=== PATIENT | female | born 1960 | race Caucasian/White ===

== ENCOUNTER 2016-11-25 12:46 | Emergency (ER) | payer OTHER ==
[2016-11-25 12:58] VITALS: TEMP 98.8
[2016-11-25] MEDS ORDERED: NS 1,000 ML IV ONE (13:04)
[2016-11-25] MEDS ORDERED: methylPREDNISolone SOD SUCC 125 MG/2 ML VIAL IVP ONE (13:05)
[2016-11-25] MEDS ORDERED: ONDANSETRON 4 MG/2 ML VIAL IVP ONE (13:05)
--- NOTE | 2016-11-25 13:10 | EDPHY ---
H & P Time Seen by Provider: 11/25/16 12:57 HPI/ROS: CHIEF COMPLAINT: Headache HISTORY OF PRESENT ILLNESS: Patient is a 56-year-old female who presents to the emergency department with headache starting on Thursday. The patient states she has a history of migraines. She typically eats wanted to migraines a year. She states she was previously diagnosed with migraines and took migraine medicine. She does not recall having imaging. This headache started on Thursday. It has been fairly persistent. Initially started with nausea and mild dizziness. And now progressed to right-sided headache. Her headache occasionally radiates to the left side of the head and down the right side of her neck. It is not worse with movement. It is not positional. She has had no ataxia. She denies blurred or double vision. No recent trauma. REVIEW OF SYSTEMS: My complete review of systems is negative except as mentioned in the HPI. Past medical history: Includes migraines Past surgical history: Uterine ablation Social history: The patient is . She occasionally drinks alcohol Family history. The patient's father had a stroke in his 80s. GENERAL: No acute distress, alert. HEENT: Eyes normal to inspection, normal pharynx, no signs of dehydration. NECK: No thyromegaly, no lymphadenopathy, supple. No bruit RESPIRATORY: Clear to auscultation bilaterally, no rales, rhonchi or wheezing. CVS: Regular rate and rhythm, no rubs, murmurs, or gallops. ABDOMEN: Soft, nontender, nondistended, no organomegaly. BACK: Normal to inspection, no CVA tenderness. SKIN: Normal color, no rash, warm, dry. No pallor. EXTREMITIES: No pedal edema, no calf tenderness, no Homans sign or cords, no joint swelling. NEURO/PSYCH: Higher functions: Alert and Oriented x3. Normal speech and cognition. Normal mood and affect. Cranial nerves: Normal as tested. Cerebellar: Normal as tested. Good finger to nose, good [id number], normal gait. Peripheral exam: Normal motor exam. Normal sensation. Normal reflexes. Smoking Status: Never smoked Constitutional: Initial Vital Signs Temperature (C) 37.1 C 11/25/16 12:55 Heart Rate 69 11/25/16 12:55 Respiratory Rate 18 11/25/16 12:55 Blood Pressure 159/92 H 11/25/16 12:55 O2 Sat (%) 96 11/25/16 12:55 O2 Delivery Mode Room Air Allergies/Adverse Reactions: No Known Allergies Allergy (Unverified 11/25/16 12:54) Home Medications: Medication Instructions Recorded No Medications [NO HOME 01/01/12 MEDICATIONS] Ondansetron Odt [Zofran Odt 4 mg 4 mg PO Q4PRN PRN #7 tab 11/25/16 (*)] oxyCODONE/APAP 5/325 [Percocet 1 - 2 tab PO Q4PRN PRN #11 tab 11/25/16 5/325 (*)] Medical Decision Making - Diagnostics Imaging Results: Imaging Impressions Head CT 11/25/16 13:04 Impression: Normal brain. No intracranial hemorrhage or mass. Findings discussed with Emergency Department physician, Jesenia Coppola, at 1: 58 PM 11/25/2016. Imaging: Discussed imaging studies w/ call center receptionist Radiologist ED Course/Re-evaluation: In the emergency department I discussed possible etiologies with the patient. I answered all her questions. An IV was placed. She was given normal saline 1 L IV for hydration. She was given Benadryl 25 mg IV and Solu-Medrol 125 mg IV for her migraine. She is given Zofran 4 mg IV for her migraine and nausea. CT of the head was ordered. CT angio of the head and neck were also ordered. Head CT: Negative. please refer the dictated report by Dr. Castrejon. CT angio head neck: Please refer the dictated report by Dr. Castrejon. No acute disease. I discussed the results with the patient and answered all her questions. I re- evaluated the patient. She had no focal neurologic deficits. She still had a mild headache. Her dizziness had improved. Patient was given Toradol 30 mg IV. 1453: I rechecked the patient. No focal deficits. She still has right-sided headache. Because of that she was given fentanyl 100 mcg IV and Reglan 10 mg IV. 1500: The patient is signed out to Dr. Phillips at change of shift. Patient will be rechecked after receiving fentanyl and Reglan. Of note, the patient had no focal neurologic deficits on initial on repeat exam. She had a negative CT with without contrast. I think subarachnoid hemorrhage and CVA is unlikely. I doubt dissection. Differential Diagnosis: My differential includes but is not limited to migraine, ischemic CVA, hemorrhagic CVA, dissection, aneurysm, pseudotumor, tension headache - Data Points Laboratory Results: Laboratory Results 11/25/16 13:05 11/25/16 13:05 11/25/16 11/25/16 11/25/16 13:05 13:05 13:05 WBC 6.18 10^3/uL 10^3/uL (3.80-9.50) RBC 5.31 10^6/uL 10^6/uL (4.18-5.33) Hgb 16.1 g/dL g/dL (12.6-16.3) Hct 46.9 % % (38.0-47.0) MCV 88.3 fL fL (81.5-99.8) MCH 30.3 pg pg (27.9-34.1) MCHC 34.3 g/dL g/dL (32.4-36.7) RDW 12.4 % % (11.5-15.2) Plt Count 239 10^3/uL 10^3/uL (150-400) MPV 10.0 fL fL (8.7-11.7) Neut % (Auto) 57.7 % % (39.3-74.2) Lymph % (Auto) 34.6 % % (15.0-45.0) Dickinson % (Auto) 4.7 % % (4.5-13.0) Eos % (Auto) 1.8 % % (0.6-7.6) Baso % (Auto) 1.0 % % (0.3-1.7) Nucleat RBC Rel Count 0.0 % % (0.0-0.2) Absolute Neuts (auto) 3.57 10^3/uL 10^3/uL (1.70-6.50) Absolute Lymphs (auto) 2.14 10^3/uL 10^3/uL (1.00-3.00) Absolute Monos (auto) 0.29 10^3/uL L 10^3/uL (0.30-0.80) Absolute Eos (auto) 0.11 10^3/uL 10^3/uL (0.03-0.40) Absolute Basos (auto) 0.06 10^3/uL 10^3/uL (0.02-0.10) Absolute Nucleated RBC 0.00 10^3/uL 10^3/uL (0-0.01) Immature Gran % 0.2 % % (0.0-1.1) Immature Gran # 0.01 10^3/uL 10^3/uL (0.00-0.10) PT 12.7 SEC SEC (12.0-15.0) INR 0.98 (0.83-1.16) APTT 28.8 SEC SEC (23.0-38.0) Sodium 140 mEq/L mEq/L (134-144) Potassium 4.1 mEq/L mEq/L (3.5-5.2) Chloride 104 mEq/L mEq/L (97-110) Carbon Dioxide 23 mEq/l mEq/l (22-31) Anion Gap 13 mEq/L mEq/L (8-16) BUN 13 mg/dL mg/dL (7-23) Creatinine 0.6 mg/dL mg/dL (0.6-1.0) Estimated GFR > 60 Glucose 97 mg/dL mg/dL (70-100) Calcium 9.5 mg/dL mg/dL (8.5-10.4) Medications Given: Discontinued Medications Diphenhydramine HCl (Benadryl Injection) 25 mg IVP EDNOW ONE Stop: 11/25/16 13:06 Last Admin: 11/25/16 13:15 Dose: 25 mg Ketorolac Tromethamine (Toradol) 30 mg IVP EDNOW ONE Stop: 11/25/16 14:14 Last Admin: 11/25/16 14:15 Dose: 30 mg Methylprednisolone Sodium Succinate (Solu-Medrol) 125 mg IVP EDNOW ONE Stop: 11/25/16 13:06 Last Admin: 11/25/16 13:15 Dose: 125 mg Ondansetron HCl (Zofran) 4 mg IVP EDNOW ONE Stop: 11/25/16 13:06 Last Admin: 11/25/16 13:15 Dose: 4 mg Departure - Departure Disposition: Home, Routine, Self-Care Clinical Impression: Headache Qualifiers: Headache type: unspecified Headache chronicity pattern: acute headache Intractability: not intractable Qualified Code(s): R51 - Headache Condition: Good Instructions: Acute Headache (ED) Referrals: Hal Sarkar DO [Doctor of Osteopathy] - 3-4 days, if not improved Prescriptions: Ondansetron Odt [Zofran Odt 4 mg (*)] 4 mg PO Q4PRN PRN #7 tab PRN Reason: For Nausea & Vomiting oxyCODONE/APAP 5/325 [Percocet 5/325 (*)] 1 - 2 tab PO Q4PRN PRN #11 tab PRN Reason: For Moderate To Severe Pain
[2016-11-25 13:12] LABS: % IMMATURE GRANULYOCYTES 0.2 % (0.0-1.1); ABSOLUTE IMMATURE GRANULOCYTES 0.01 10^3/uL (0.00-0.10); ADD DIFF? NO; ADD MORPH? NO; ADD SCAN? NO; ATYPICAL LYMPHOCYTE FLAG 20 (0-99); FRAGMENT RBC FLAG 0 (0-99); HEMATOCRIT 46.9 % (38.0-47.0); HEMOGLOBIN 16.1 g/dL (12.6-16.3); LEFT SHIFT FLG 0 (0-99); LIPEMIA HEMOLYSIS FLAG 90 (0-99); MEAN CELL HEMOGLOBIN 30.3 pg (27.9-34.1); MEAN CELL HEMOGLOBIN CONCENTR. 34.3 g/dL (32.4-36.7); MEAN CELL VOLUME 88.3 fL (81.5-99.8); PLATELET CLUMPS FLAG 0 (0-99); PLATELET COUNT 239 10^3/uL (150-400); RED BLOOD CELL COUNT 5.31 10^6/uL (4.18-5.33); RED CELL DISTRIBUTION WIDTH 12.4 % (11.5-15.2)
[2016-11-25] MEDS ORDERED: IOPAMIDOL (ISOVUE 370) 100 ML BTL IV ONE (13:16)
[2016-11-25 13:22] LABS: INR 0.98 (0.83-1.16); PROTIME(PATIENT) 12.7 SEC (12.0-15.0)
[2016-11-25 13:23] LABS: APTT 28.8 SEC (23.0-38.0)
[2016-11-25 13:25] LABS: ANION GAP 13 mEq/L (8-16); CALCIUM 9.5 mg/dL (8.5-10.4); CARBON DIOXIDE 23 mEq/l (22-31); CHLORIDE 104 mEq/L (97-110); CREATININE 0.6 mg/dL (0.6-1.0); GLOMERULAR FILTRATION RATE > 60; GLUCOSE 97 mg/dL (70-100); POTASSIUM 4.1 mEq/L (3.5-5.2); SODIUM 140 mEq/L (134-144)
[2016-11-25] MEDS ORDERED: KETOROLAC 30 MG/1 ML SDV IVP ONE (14:13)
[2016-11-25] MEDS ORDERED: METOCLOPRAMIDE 10 MG/2 ML VIAL IVP ONE (14:52)
[2016-11-25] MEDS ORDERED: fentaNYL 100 MCG/2 ML INJ IVP ONE (14:52)
[2016-11-25 15:49] VITALS: BP 150/86; PULSE 69; RESP 16; O2SAT 93
== END 2016-11-25 15:49 | disposition home or self-care (01) ==
LOC: CED 12:46
DX: R51 Headache (principal)
CPT/HCPCS: 70450-PO; 70496-PO; 70498-PO; 80048-PO; 85025-PO; 85610-PO; 85730-PO; 96374; J1200; J1885; J2405; J2765; J3010; Q9967